=== PATIENT | male | born 1970 | race Caucasian/White ===

== ENCOUNTER 2017-07-05 05:25 | Inpatient (IN) | payer BC, OTHER ==
[~2017-07-05] VITALS: Ht 177.8 cm; Wt 112.0 kg
[2017-07-05 06:26] LABS: MICROSCOPIC INDICATED
[2017-07-05 06:33] LABS: CULTURE INDICATED? NO
[2017-07-05] MEDS ORDERED: HYDROmorphone 2 MG/ML, 1ML ONE (06:54)
[2017-07-05] MEDS ORDERED: ONDANSETRON 2MG/ML, 2ML ONE (06:55)
[2017-07-05] MEDS ORDERED: LORazepam 2 MG/ML, 1ML ONE (06:55)
[2017-07-05] MEDS ORDERED: MORPHINE SULFATE 4 MG/ML, 1ML IVPush PRN (07:00)
[2017-07-05] MEDS ORDERED: SODIUM CHLORIDE FLUSH 10ML SYR IVF ONE (07:00)
[2017-07-05] MEDS ORDERED: ONDANSETRON 2MG/ML, 2ML IVPush ONE (07:00)
[2017-07-05] MEDS ORDERED: SODIUM CHLORIDE 0.9% 1,000ML IV ONE (07:00)
[2017-07-05 07:06] LABS: BASOPHILS # (AUTO) 0.03 x10^3/uL (0-0.1); BASOPHILS % (AUTO) 0 % (0-1); EOSINOPHILS # (AUTO) 0.13 x10^3/uL (0-0.4); EOSINOPHILS % (AUTO) 1 % (1-7); LYMPHOCYTES # (AUTO) 1.38 x10^3/uL (1-3.4); LYMPHOCYTES % (AUTO) 13 % (22-44); MD NO; MEAN CORPUSCULAR HEMOGLOBIN 31.3 pg (27.5-34.5); MEAN CORPUSCULAR HGB CONC 34.5 g/dL (33.2-36.2); MEAN CORPUSCULAR VOLUME 90.7 fL (81-97); MEAN PLATELET VOLUME 8.4 fL (7.4-10.4); MONOCYTES % (AUTO) 8 % (2-9); NEUTROPHILS # (AUTO) 8.17 x10^3/uL (1.8-6.8); NEUTROPHILS % (AUTO) 78 % (42-75); PLATELET COUNT 165 x10^3/uL (130-400); RED BLOOD COUNT 5.08 x10^6/uL (4.38-5.82); RED CELL DISTRIBUTION WIDTH 13.3 % (9.4-14.8)
[2017-07-05] MEDS ORDERED: METF500T4 PO (07:12)
[2017-07-05 07:17] LABS: ALANINE AMINOTRANSFERASE 121 U/L (12-78); ANION GAP 11 mmol/L (5-15); CHLORIDE 104 mmol/L (98-107); CREATININE 1.19 mg/dL (0.7-1.3)
[2017-07-05 07:19] LABS: ALKALINE PHOSPHATASE 97 U/L (45-117); BILIRUBIN,TOTAL 0.7 mg/dL (0.2-1.0); TOTAL PROTEIN 7.3 g/dL (6.4-8.2)
[2017-07-05] MEDS ORDERED: HYDROmorphone 1 MG/ML, 1ML IV ONE (07:30)
[2017-07-05] MEDS ORDERED: LORazepam 2 MG/ML, 1ML IVPush ONE (07:30)
[2017-07-05] MEDS ORDERED: HYDROmorphone 1 MG/ML, 1ML IVPush PRN (10:00)
[2017-07-05] MEDS ORDERED: ONDANSETRON ODT 4 MG PO PRN (11:30)
[2017-07-05] MEDS ORDERED: ONDANSETRON 2MG/ML, 2ML IVPush PRN (11:30)
[2017-07-05] MEDS ORDERED: LABETALOL 5MG/ML, 20ML IVPush PRN (11:30)
[2017-07-05] MEDS ORDERED: morphine SULFATE 10 MG/ML, 1ML IVPush PRN (11:30)
[2017-07-05] MEDS ORDERED: GUAIFENESIN/DM 200-20MG, 10ML UDC PO PRN (11:30)
[2017-07-05] MEDS ORDERED: MORPHINE SULFATE 4 MG/ML, 1ML ONE (11:53)
[2017-07-05] MEDS: D5%-0.45NACL+KCL 20MEQ 1,000 ML IV SCH ×2 (14:08→22:48)
[2017-07-05] MEDS: HYDROmorphone 1 MG/ML, 1ML IV PRN ×2 (14:25→19:08)
[2017-07-05 14:29] VITALS: BP 130/84
[2017-07-05] MEDS: HYDROcodone/APAP 5/325 TABLET PO PRN (16:47)
[2017-07-05] MEDS: INSULIN ASPART 100 UNITS/ML, PEN SQ-INSULIN SCH ×2 (19:01→21:00)
[2017-07-05] MEDS ORDERED: LISI5TAB7 PO (19:11)
[2017-07-05] MEDS ORDERED: ATOR-2 PO (19:12)
[2017-07-05] MEDS ORDERED: SITA100T PO (19:14)
[2017-07-05] MEDS ORDERED: ASPI-650 PO (19:14)
[2017-07-05 19:46] LABS: MICROSCOPIC AUTO
[2017-07-05 19:50] LABS: CULTURE INDICATED? NO
[2017-07-05 20:00] VITALS: BP 126/72
[2017-07-05] MEDS: KETOROLAC 30 MG/1 ML IVPush SCH (21:13)
[2017-07-06 02:00] VITALS: BP 115/69
[2017-07-06] MEDS: KETOROLAC 30 MG/1 ML IVPush SCH (02:37)
[2017-07-06 05:58] LABS: ALBUMIN 3.4 g/dL (3.4-5.0); ANION GAP 7 mmol/L (5-15); CALCIUM 8.1 mg/dL (8.5-10.1); CHLORIDE 102 mmol/L (98-107)
[2017-07-06 06:01] LABS: CREATININE 1.52 mg/dL (0.7-1.3)
[2017-07-06 06:02] LABS: ALANINE AMINOTRANSFERASE 85 U/L (12-78); ALKALINE PHOSPHATASE 72 U/L (45-117); TOTAL PROTEIN 6.4 g/dL (6.4-8.2)
[2017-07-06 06:08] LABS: BASOPHILS # (AUTO) 0.03 x10^3/uL (0-0.1); BASOPHILS % (AUTO) 0 % (0-1); EOSINOPHILS # (AUTO) 0.24 x10^3/uL (0-0.4); EOSINOPHILS % (AUTO) 3 % (1-7); LYMPHOCYTES # (AUTO) 1.96 x10^3/uL (1-3.4); LYMPHOCYTES % (AUTO) 21 % (22-44); MD NO; MEAN CORPUSCULAR HEMOGLOBIN 31.3 pg (27.5-34.5); MEAN PLATELET VOLUME 8.1 fL (7.4-10.4); MONOCYTES # (AUTO) 0.99 x10^3/uL (0.2-0.8); MONOCYTES % (AUTO) 11 % (2-9); NEUTROPHILS # (AUTO) 6.14 x10^3/uL (1.8-6.8); NEUTROPHILS % (AUTO) 66 % (42-75); PLATELET COUNT 159 x10^3/uL (130-400); RED BLOOD COUNT 4.58 x10^6/uL (4.38-5.82); RED CELL DISTRIBUTION WIDTH 13.1 % (9.4-14.8)
[2017-07-06 09:00] VITALS: BP 113/68
[2017-07-06] MEDS: SENNA/DOCUSATE TABLET PO SCH ×2 (09:00→14:13)
[2017-07-06] MEDS: TAMSULOSIN 0.4 MG CAP.ER.24H PO SCH (09:00)
[2017-07-06] MEDS ORDERED: KETOROLAC 30 MG/1 ML IVPush SCH (09:00)
[2017-07-06] MEDS: INSULIN ASPART 100 UNITS/ML, PEN SQ-INSULIN SCH ×4 (09:00→20:19)
[2017-07-06] MEDS: KETOROLAC 30 MG/1 ML IVPush PRN ×3 (09:01→21:42)
[2017-07-06] MEDS: SODIUM CHLORIDE 0.9% 1,000 ML IV SCH ×2 (09:52→17:00)
[2017-07-06] MEDS ORDERED: D5%-0.45NACL+KCL 20MEQ 1,000 ML IV SCH (11:26)
[2017-07-06] MEDS: POLYETHYLENE GLYCOL 17 GM PACKET PO PRN (14:13)
[2017-07-06] MEDS: HYDROmorphone 1 MG/ML, 1ML IV PRN ×2 (14:13→20:18)
[2017-07-06 15:24] VITALS: BP 142/90
[2017-07-06 20:00] VITALS: BP 137/84
[2017-07-07] MEDS: SODIUM CHLORIDE 0.9% 1,000 ML IV SCH ×4 (00:44→22:44)
[2017-07-07] MEDS: HYDROmorphone 1 MG/ML, 1ML IV PRN ×4 (01:07→15:44)
[2017-07-07 02:00] VITALS: BP 114/67
[2017-07-07] MEDS: KETOROLAC 30 MG/1 ML IVPush PRN (03:16)
[2017-07-07 05:25] LABS: BASOPHILS # (AUTO) 0.02 x10^3/uL (0-0.1); BASOPHILS % (AUTO) 0 % (0-1); EOSINOPHILS # (AUTO) 0.27 x10^3/uL (0-0.4); EOSINOPHILS % (AUTO) 3 % (1-7); LYMPHOCYTES # (AUTO) 1.69 x10^3/uL (1-3.4); LYMPHOCYTES % (AUTO) 20 % (22-44); MD NO; MEAN CORPUSCULAR HEMOGLOBIN 31.4 pg (27.5-34.5); MEAN CORPUSCULAR HGB CONC 34.1 g/dL (33.2-36.2); MEAN CORPUSCULAR VOLUME 91.9 fL (81-97); MONOCYTES # (AUTO) 0.78 x10^3/uL (0.2-0.8); MONOCYTES % (AUTO) 9 % (2-9); NEUTROPHILS # (AUTO) 5.65 x10^3/uL (1.8-6.8); NEUTROPHILS % (AUTO) 67 % (42-75); PLATELET COUNT 144 x10^3/uL (130-400); RED BLOOD COUNT 4.51 x10^6/uL (4.38-5.82); RED CELL DISTRIBUTION WIDTH 13.1 % (9.4-14.8)
[2017-07-07 05:32] LABS: ALBUMIN 3.3 g/dL (3.4-5.0); ANION GAP 6 mmol/L (5-15); CALCIUM 8.4 mg/dL (8.5-10.1); CHLORIDE 108 mmol/L (98-107)
[2017-07-07] MEDS: INSULIN ASPART 100 UNITS/ML, PEN SQ-INSULIN SCH ×4 (07:00→22:45)
[2017-07-07 07:36] VITALS: BP 120/74
[2017-07-07] MEDS: SENNA/DOCUSATE TABLET PO SCH (09:00)
[2017-07-07] MEDS: TAMSULOSIN 0.4 MG CAP.ER.24H PO SCH (09:00)
[2017-07-07 13:33] VITALS: BP 125/73
[2017-07-07] MEDS ORDERED: FENTANYL PF 100 MCG/2ML ONE ×2 (18:14→21:35)
[2017-07-07] MEDS ORDERED: MIDAZOLAM 1 MG/ML, 2ML ONE (18:14)
[2017-07-07] MEDS ORDERED: MEPERIDINE/PF 50 MG/ML ONE (19:23)
[2017-07-07] MEDS ORDERED: ONDANSETRON 2MG/ML, 2ML ONE (19:26)
[2017-07-07] MEDS ORDERED: ROCURONIUM 10 MG/ML,10ML ONE (19:26)
[2017-07-07] MEDS ORDERED: GLYCOPYRROLATE 0.2MG/1ML, 5ML ONE (19:26)
[2017-07-07] MEDS ORDERED: DEXAMETHASONE 4 MG/ML, 1ML ONE (19:26)
[2017-07-07] MEDS ORDERED: PROPOFOL 10 MG/ML, 20ML ONE (19:26)
[2017-07-07] MEDS ORDERED: CEFAZOLIN 1,000 MG ONE (19:26)
[2017-07-07] MEDS ORDERED: SUCCINYLCHOLINE 20 MG/ML, 10ML ONE (19:26)
[2017-07-07] MEDS ORDERED: NEOSTIGMINE 1 MG/ML, 10ML ONE (19:26)
[2017-07-07] MEDS ORDERED: PROMETHAZINE 25 MG/ML, 1ML IV PRN (19:30)
[2017-07-07] MEDS ORDERED: LORazepam 2 MG/ML, 1ML IVPush PRN (19:30)
[2017-07-07] MEDS ORDERED: MEPERIDINE/PF 25MG/0.5ML IVPush PRN (19:30)
[2017-07-07] MEDS ORDERED: hydrALAzine 20 MG/ML, 1ML IV PRN (19:30)
[2017-07-07] MEDS ORDERED: ALBUTEROL SULFATE 2.5 MG/3 ML NPPB PRN (19:30)
[2017-07-07] MEDS ORDERED: HYDROmorphone 1 MG/ML, 1ML IV PRN (19:30)
[2017-07-07] MEDS ORDERED: ACETAMINOPHEN 325 MG TABLET PO PRN (19:30)
[2017-07-07] MEDS ORDERED: OXYcodone 5 MG/5 ML ORAL.SOL UDC PO PRN (19:30)
[2017-07-07] MEDS ORDERED: LABETALOL 5MG/ML, 20ML IV PRN (19:30)
[2017-07-07] MEDS ORDERED: FENTANYL PF 250 MCG/5ML ONE (20:02)
[2017-07-07] MEDS ORDERED: OXYcodone 5 MG/5 ML ORAL.SOL UDC ONE (21:35)
[2017-07-07] MEDS ORDERED: ACETAMINOPHEN 650 MG/20.3 ML UDC ONE (21:35)
[2017-07-07] MEDS: FENTANYL PF 100 MCG/2ML IV PRN ×2 (21:35→21:46)
[2017-07-07] MEDS ORDERED: HYDROmorphone 2 MG/ML, 1ML ONE (23:39)
[2017-07-07 23:50] VITALS: BP 134/76
[2017-07-08] MEDS: HYDROcodone/APAP 5/325 TABLET PO PRN (00:06)
[2017-07-08 02:19] VITALS: BP 141/84
[2017-07-08] MEDS: SODIUM CHLORIDE 0.9% 1,000 ML IV SCH ×3 (04:18→17:27)
[2017-07-08 06:12] LABS: BASOPHILS % (AUTO) 0 % (0-1); EOSINOPHILS # (AUTO) 0.25 x10^3/uL (0-0.4); EOSINOPHILS % (AUTO) 4 % (1-7); LYMPHOCYTES # (AUTO) 1.27 x10^3/uL (1-3.4); LYMPHOCYTES % (AUTO) 19 % (22-44); MD NO; MEAN CORPUSCULAR HEMOGLOBIN 31.6 pg (27.5-34.5); MEAN CORPUSCULAR HGB CONC 34.4 g/dL (33.2-36.2); MEAN CORPUSCULAR VOLUME 91.7 fL (81-97); MEAN PLATELET VOLUME 7.9 fL (7.4-10.4); MONOCYTES % (AUTO) 11 % (2-9); NEUTROPHILS # (AUTO) 4.45 x10^3/uL (1.8-6.8); NEUTROPHILS % (AUTO) 67 % (42-75); PLATELET COUNT 135 x10^3/uL (130-400); RED BLOOD COUNT 4.21 x10^6/uL (4.38-5.82)
[2017-07-08 06:21] LABS: ANION GAP 6 mmol/L (5-15); CALCIUM 8.2 mg/dL (8.5-10.1); CHLORIDE 104 mmol/L (98-107)
[2017-07-08 06:22] LABS: CREATININE 1.23 mg/dL (0.7-1.3)
[2017-07-08 07:00] VITALS: BP 126/77
[2017-07-08] MEDS: INSULIN ASPART 100 UNITS/ML, PEN SQ-INSULIN SCH ×4 (07:00→22:06)
[2017-07-08] MEDS: TAMSULOSIN 0.4 MG CAP.ER.24H PO SCH (07:45)
[2017-07-08] MEDS: SENNA/DOCUSATE TABLET PO SCH (07:46)
[2017-07-08] MEDS ORDERED: HYDROmorphone 2 MG/ML, 1ML ONE ×3 (07:52→22:01)
[2017-07-08] MEDS: HYDROmorphone 1 MG/ML, 1ML IV PRN ×3 (07:55→22:07)
[2017-07-08] MEDS: POLYETHYLENE GLYCOL 17 GM PACKET PO PRN (09:11)
[2017-07-08 14:00] VITALS: BP 131/76
[2017-07-08 19:34] VITALS: BP 125/77
[2017-07-09] MEDS: SODIUM CHLORIDE 0.9% 1,000 ML IV SCH ×2 (01:09→07:30)
[2017-07-09 02:42] VITALS: BP 137/86
[2017-07-09] MEDS ORDERED: HYDROmorphone 2 MG/ML, 1ML ONE (02:54)
[2017-07-09] MEDS: HYDROmorphone 1 MG/ML, 1ML IV PRN (03:01)
[2017-07-09 06:31] LABS: BASOPHILS # (AUTO) 0.08 x10^3/uL (0-0.1); BASOPHILS % (AUTO) 1 % (0-1); EOSINOPHILS % (AUTO) 4 % (1-7); LYMPHOCYTES # (AUTO) 1.62 x10^3/uL (1-3.4); LYMPHOCYTES % (AUTO) 21 % (22-44); MD SCAN; MEAN CORPUSCULAR HEMOGLOBIN 31.6 pg (27.5-34.5); MEAN CORPUSCULAR HGB CONC 34.2 g/dL (33.2-36.2); MEAN CORPUSCULAR VOLUME 92.3 fL (81-97); MEAN PLATELET VOLUME 7.6 fL (7.4-10.4); MONOCYTES # (AUTO) 0.78 x10^3/uL (0.2-0.8); MONOCYTES % (AUTO) 10 % (2-9); NEUTROPHILS % (AUTO) 64 % (42-75); PLATELET COUNT 166 x10^3/uL (130-400); RED BLOOD COUNT 4.42 x10^6/uL (4.38-5.82)
[2017-07-09 06:39] LABS: ALBUMIN 3.1 g/dL (3.4-5.0); ANION GAP 7 mmol/L (5-15); CALCIUM 8.5 mg/dL (8.5-10.1); CHLORIDE 109 mmol/L (98-107)
[2017-07-09] MEDS ORDERED: HYDROcodone/APAP 5/325 TABLET PO PRN (07:30)
[2017-07-09] MEDS: TAMSULOSIN 0.4 MG CAP.ER.24H PO SCH (07:42)
[2017-07-09] MEDS: SENNA/DOCUSATE TABLET PO SCH (07:43)
[2017-07-09] MEDS: INSULIN ASPART 100 UNITS/ML, PEN SQ-INSULIN SCH (08:30)
[2017-07-09 08:52] VITALS: BP 132/78
[2017-07-09] MEDS ORDERED: HYDR-3240 PO (09:28)
[2017-07-09] MEDS ORDERED: AMOX250C17 PO (09:29)
== END 2017-07-09 09:37 | disposition home or self-care (01) | DRG 669 ==
LOC: ED 07:20 → EDIP 08:12 → 4EST 12:17 → 4WST 07-07 22:15 → DCLOUNGE 07-09 09:26
PROVIDERS: ADMIT Urology; ATTEND Urology
PROC: 0T768DZ Dilation of Right Ureter with Intraluminal Device, Via Natural or Artificial Opening Endoscopic (ICD-10-PCS; 2017-07-07)
PROC: 0TC68ZZ Extirpation of Matter from Right Ureter, Via Natural or Artificial Opening Endoscopic (ICD-10-PCS; principal; 2017-07-07 17:15)
DX: N13.2 Hydronephrosis with renal and ureteral calculous obstruction (principal); N17.9 Acute kidney failure, unspecified; E11.65 Type 2 diabetes mellitus with hyperglycemia; D72.829 Elevated white blood cell count, unspecified; R74.0 Nonspecific elevation of levels of transaminase and lactic acid dehydrogenase [LDH]; I10 Essential (primary) hypertension; Z84.89 Family history of other specified conditions; Z79.84 Long term (current) use of oral hypoglycemic drugs
CPT/HCPCS: 36415; 74018; 74176; 76001; 80048; 80053; 81001; 82040; 82360; 82962; 83735; 85025; 87040; 88300; 96374; 96375; 96376; C1726; J0690; J1100; J1170; J1815; J1885; J2175; J2250; J2405; J2704; J2710; J3010; J3490; C1758; C1769; C2617; J0330; J2060; J2270; J3480; J7030

== ENCOUNTER 2018-03-18 08:09 | Emergency (ER) | payer BC, OTHER ==
[~2018-03-18] VITALS: Ht 177.8 cm; Wt 105.0 kg
[~2018-03-18 08:09] MED LIST: AMOX250C17 PO; ASPI-650 PO; ATOR-2 PO; HYDR-3240 PO; LISI5TAB7 PO; METF500T17 PO; SITA100T PO
[2018-03-18] MEDS ORDERED: HYDROmorphone 2 MG/ML, 1ML ONE ×2 (08:37→09:36)
[2018-03-18] MEDS ORDERED: KETOROLAC 30 MG/1 ML ONE (08:37)
[2018-03-18] MEDS: HYDROmorphone 2 MG/ML, 1ML IVPush PRN ×2 (08:46→09:41)
[2018-03-18 08:58] LABS: BASOPHILS # (AUTO) 0.03 x10^3/uL (0-0.1); BASOPHILS % (AUTO) 0 % (0-1); EOSINOPHILS # (AUTO) 0.25 x10^3/uL (0-0.4); EOSINOPHILS % (AUTO) 3 % (1-7); LYMPHOCYTES # (AUTO) 1.76 x10^3/uL (1-3.4); LYMPHOCYTES % (AUTO) 24 % (22-44); MD NO; MEAN CORPUSCULAR HEMOGLOBIN 31.8 pg (27.5-34.5); MEAN CORPUSCULAR HGB CONC 35.2 g/dL (33.2-36.2); MEAN CORPUSCULAR VOLUME 90.3 fL (81-97); MEAN PLATELET VOLUME 7.9 fL (7.4-10.4); MONOCYTES % (AUTO) 8 % (2-9); NEUTROPHILS # (AUTO) 4.64 x10^3/uL (1.8-6.8); NEUTROPHILS % (AUTO) 64 % (42-75); PLATELET COUNT 162 x10^3/uL (130-400); RED BLOOD COUNT 5.13 x10^6/uL (4.38-5.82)
[2018-03-18] MEDS ORDERED: SODIUM CHLORIDE FLUSH 10ML SYR IVF ONE (09:00)
[2018-03-18] MEDS ORDERED: KETOROLAC 30 MG/1 ML IVPush ONE (09:00)
[2018-03-18] MEDS ORDERED: ONDANSETRON 2MG/ML, 2ML IVPush ONE (09:00)
[2018-03-18 09:08] LABS: ALANINE AMINOTRANSFERASE 124 U/L (12-78); ALBUMIN 4.2 g/dL (3.4-5.0); ANION GAP 13 mmol/L (5-15); CALCIUM 8.9 mg/dL (8.5-10.1); CHLORIDE 108 mmol/L (98-107); CREATININE 1.42 mg/dL (0.7-1.3)
[2018-03-18 09:11] LABS: ALKALINE PHOSPHATASE 98 U/L (45-117); BILIRUBIN,TOTAL 0.8 mg/dL (0.2-1.0); TOTAL PROTEIN 7.9 g/dL (6.4-8.2)
[2018-03-18 10:00] LABS: MICROSCOPIC INDICATED
[2018-03-18 10:12] LABS: CULTURE INDICATED? NO
[2018-03-18 11:27] VITALS: BP 124/73
== END 2018-03-18 11:47 | disposition home or self-care (01) ==
LOC: ED 11:41
DX: N20.1 Calculus of ureter (principal)
CPT/HCPCS: 36415; 74176; 80053; 81001; 85025; 96374; 96375; 96376; 99285; J1170; J1885